=== PATIENT | male | born 1950 | race Hispanic/Latino ===

== ENCOUNTER → 2023-10-14 10:25 | Outpatient (REF) | payer OTHER, SELFPAY ==
[2023-10-14 12:36] LABS: Iron 79 ug/dl (49-181)
[2023-10-14 12:48] LABS: Percent Saturation 19 % (20-50); Total Iron Binding Capacity 405 ug/dl (261-462)
[2023-10-14 13:31] LABS: % Basophils 1.2 % (0-2); % Eosinophils 5.2 % (0-6); % Immature Granulocytes 0.7 % (0-0.5); % Lymphocytes 48.9 % (20.5-51.1); % Monocytes 9.4 % (1.7-9.3); % Neutrophils 34.6 % (42.2-75.2); Absolute Basophils 0.1 10^3/uL (0-0.2); Absolute Eosinophils 0.2 10^3/uL (0-0.7); Absolute Lymphocytes 2.1 10^3/uL (1.2-3.4); Absolute Monocytes 0.4 10^3/uL (0.1-0.6); Absolute Neutrophils 1.5 10^3/uL (1.4-6.5); Hematocrit 41.7 % (39.0-52.0); Hemoglobin 13.7 g/dL (13.0-18.0); Mean Corp Hgb Conc. 32.9 g/dL (33.0-37.0); Mean Corpuscular Hgb 27.7 pg (27.0-31.0); Mean Corpuscular Volume 84.4 fL (80.0-94.0); Mean Platelet Volume 10.3 fL (7.4-10.4); Nucleated Red Blood Cells % 0 % (-); Platelet Count 267 10^3/uL (130-400); Red Blood Cell Count 4.94 10^6/uL (4.70-6.10); Red Cell Dist. Width 14.1 % (11.5-14.5); White Blood Cell Count 4.3 10^3/uL (4.8-10.8)
== END ==
LOC: CLINIC 10:25
PROVIDERS: ATTENDING PHYSICIAN Internal Medicine
DX: D50.9 Iron deficiency anemia, unspecified (principal)
CPT/HCPCS: 36415; 83540; 83550; 85025

== ENCOUNTER 2024-12-30 19:38 | Inpatient (IN) | payer OTHER, SELFPAY ==
[2024-12-30 16:36] VITALS: BP 132/83
--- NOTE | 2024-12-30 16:54 | ED.GENMED ---
History of Present Illness
General
Chief Complaint: Male Genito-Urinary Symptoms
Time Seen by Provider: 12/30/24 16:41
History of Present Illness
History of Present Illness:
Patient presents to the emergency department with dysuria for the past 3 to 4 days. Last night he developed fever and low back pain bilaterally. No vomiting. history of UTIs.
Past History
Past History
ED Past Medical History: None
ED Past Surgical History: None
Social History
Tobacco: Non-smoker
Living: with family
Phy Exam
Physical Exam
Physical Exam:
GENERAL APPEARANCE: NAD, well developed/ well nourished
EYES lids/conjunctiva normal
EARS/NOSE/THROAT Mucous membranes moist, uvula midline without oral pharyngeal erythema, exudate or swelling
HEAD/NECK normocephalic atraumatic, neck is supple.
RESPIRATORY respiratory effort normal, speaks in full sentences, no accessory muscle use. Lungs clear to auscultation without rhonchi, wheezes, rales
CARDIAC Regular rate and rhythm, no edema.
ABDOMINAL Soft, no distention. Mild bladder tenderness to palpation. Mild lumbar tenderness to palpation bilaterally.
Normal external genitalia.
MUSCLES/EXTREMITIES No abnormal range of motion, no swelling.
SKIN Warm, pink and dry. No rashes
NEUROLOGICAL Speech is clear and appropriate. Normal level of consciousness. 5/5 strength in all extremities.
PSYCH Normal mood and affect. Judgement/competence is appropriate
Course
Orders/Labs/Results
Orders:
Orders
12/30/24 16:53
0.9% Sodium Chloride 1000 ml [Nss] 1,000 ml IV BOLUS
12/30/24 17:56
Complete Blood Count/With Diff Urgent
Comprehensive Metabolic Panel Urgent
Lactic Acid Q4H
Comment: CANCEL 2nd LACTIC ACID IF 1st LACTIC ACID IS LESS THAN 2
Urinalysis Reflex To Culture Urgent
Date Specimen was Collected: 12/30/24
Time Specimen was Collected: 17:17
Urine Microscopic Reflex Cult Urgent
Urine Culture Urgent
MOON Source: U
Specimen Description:
Date Specimen was Collected: 12/30/24
Time Specimen was Collected: 17:17
12/30/24 18:04
Acetaminophen [Tylenol] 1,000 mg .ROUTE .STK-MED ONE
12/30/24 18:05
Acetaminophen [Tylenol] 1,000 mg PO NOW STA
12/30/24 18:52
CefTRIAXone [Rocephin] 1,000 mg IV NOW STA
12/30/24 19:00
Blood Culture Q30M
MOON Source: Blood/Venous
Specimen Description:
12/30/24 19:30
Blood Culture Q30M
MOON Source: Blood/Venous
Specimen Description:
Abnormal Lab Results
12/30/24
17:56
WBC 13.2 H 10^3/uL
(4.8-10.8)
Abs Immat Gran (auto) 0.1 H 10^3/uL
(0-0.05)
Absolute Neuts (auto) 10.6 H 10^3/uL
(1.4-6.5)
Absolute Monos (auto) 1.0 H 10^3/uL
(0.1-0.6)
Neutrophils % 80.6 H %
(42.2-75.2)
Lymphocytes % 11.1 L %
(20.5-51.1)
Glucose 103 H mg/dl
(70-99)
Ur Occult Blood Reflex 4+ A
(Negative)
Leukocyte Esterase Rfl 3+ A
(Negative)
Urine WBC (Reflex) 50-60 A /HPF
(0-5)
Urine Bacteria (Reflex) Few A
(Negative)
Urine Albumin (Reflex) 2+ A
(Neg - Trace)
12/30/24 17:56
12/30/24 17:56
Vital Signs
Initial and Last Documented VS:
Initial Vital Signs
Temp Pulse Resp BP Pulse Ox
98.2 F 90 16 132/83 96
12/30/24 16:36 12/30/24 16:36 12/30/24 16:36 12/30/24 16:36 12/30/24 16:36
Last Documented Vital Signs
Temp Pulse Resp BP Pulse Ox
101.3 F H 92 22 125/72 96
12/30/24 18:18 12/30/24 18:18 12/30/24 18:18 12/30/24 18:18 12/30/24 18:18
*Critical Care Note
Total Time (30-74mins, 75-104mins- exclusive of procedures): Not Applicable
ED Attending Note
ED Attending Note
ED Attending Note:
Patient presents with fever dysuria and low back pain. Urine positive for infection. He is febrile with a leukocytosis. This consistent with sepsis. No evidence of hypotension or shock or endorgan damage. Cultures drawn. Will treat with
ceftriaxone and admit to hospitalist.
-
Portions of this chart may have been created with voice recognition software.� Occasional wrong word or��sound alike� substitutions may have occurred due to the inherent limitations of voice recognition software.
Discharge Plan
Departure
Patient Disposition: Admit
Date of Disposition: 12/30/24
Time of Disposition: 18:55
Presentation/result/management discussed w/ accepting MD/DO: Hospitalist
Discharge Problem:
Acute pyelonephritis
Prescriptions:
No Action
amoxicillin-pot clavulanate 1 TABLET tablet
1 tab PO Q12 Qty: 20 0RF
Referrals:
UNKNOWN - PT NOT,INTERVIEWE [Family Provider]
Interventions
Interventions:
*Risk Screen - Suicide Last Done: 12/30/24 18:18
*General Assessment Last Done: 12/30/24 18:18
*Neglect/Abuse Screening Last Done: 12/30/24 18:18
*ED- Fall Risk Assessment Last Done: 12/30/24 18:18
*ED COVID-19 Vaccine History Last Done: 12/30/24 18:18
ED-Male Genitourinary Assessment Last Done: 12/30/24 18:18
ED- Pulmonary Assessment Last Done: 12/30/24 18:18
Discharge Date and Time
Print Language: BRAZILIAN
[2024-12-30 17:25] VITALS: BMI 26.6
[2024-12-30 18:06] LABS: Urine Albumin 2+ (Neg - Trace); Urine Bilirubin Negative (Negative); Urine Character Slightly Cloudy (Clear); Urine Color Yellow; Urine Glucose Negative (Negative); Urine Ketone Negative (Negative); Urine Leukocyte 3+ (Negative); Urine Nitrite Negative (Negative); Urine Occult Blood 4+ (Negative); Urine Urobilinogen Negative (Neg - 1+)
[2024-12-30] MEDS: TYLENOL 1000 MG PO (18:06)
[2024-12-30] MEDS: NSS 1000 IV ×2 (18:06→21:30)
[2024-12-30 18:07] LABS: % Basophils 0.3 % (0-2); % Eosinophils 0.2 % (0-6); % Immature Granulocytes 0.5 % (0-0.5); % Lymphocytes 11.1 % (20.5-51.1); % Monocytes 7.3 % (1.7-9.3); % Neutrophils 80.6 % (42.2-75.2); Absolute Immature Granulocytes 0.1 10^3/uL (0-0.05); Absolute Lymphocytes 1.5 10^3/uL (1.2-3.4); Absolute Neutrophils 10.6 10^3/uL (1.4-6.5); Hematocrit 41.2 % (39.0-52.0); Hemoglobin 14.1 g/dL (13.0-18.0); Mean Corp Hgb Conc. 34.2 g/dL (33.0-37.0); Mean Corpuscular Hgb 29.4 pg (27.0-31.0); Mean Platelet Volume 9.2 fL (7.4-10.4); Nucleated Red Blood Cells % 0 % (-); Platelet Count 262 10^3/uL (130-400); Red Blood Cell Count 4.79 10^6/uL (4.70-6.10); Red Cell Dist. Width 13.9 % (11.5-14.5); White Blood Cell Count 13.2 10^3/uL (4.8-10.8)
[2024-12-30 18:18] VITALS: BP 125/72
[2024-12-30 18:18] LABS: Lactic Acid 1.2 mmol/L (0.7-2.0)
[2024-12-30 18:21] LABS: ALT (SGPT) 28 U/L (0-50); AST (SGOT) 19 U/L (17-59); Albumin 4.2 g/dl (3.5-5.0); Alkaline Phosphatase 116 U/L (38-126); Blood Urea Nitrogen 11 mg/dl (9-20); Calcium 8.9 mg/dl (8.4-10.2); Carbon Dioxide 24 mmol/L (22-30); Chloride 104 mmol/L (98-107); Estimated Creatinine Clearance 82 ml/min; Glucose 103 mg/dl (70-99); Potassium 4.2 mmol/L (3.5-5.1); Sodium 136 mmol/L (135-145); Total Bilirubin 0.9 mg/dl (0.2-1.3); Total Protein 7.6 g/dl (6.3-8.2); eGFR > 60.00
[2024-12-30 18:37] LABS: Urine Bacteria Few (Negative); Urine Red Blood Cell 0-2 /HPF (0-2); Urine Squamous Cell 0-2 /LPF (Few); Urine White Cell 50-60 /HPF (0-5)
[2024-12-30] MEDS: ROCEPHIN 1000 MG IV (18:58)
--- NOTE | 2024-12-30 19:12 | HPS.HSE ---
Family Physician
-
Family Physician: INTERVIEWE UNKNOWN - PT NOT
Chief Complaint
-
dysuria
History of Present Illness
74-year-old Ecuadorean-speaking male past medical history of UTIs, iron deficiency anemia, diabetes diet-controlled, presenting with burning with urination for the past 3 to 4 days. Last night he developed fever and lower back pain bilaterally worse
on the right side. Denies vomiting. Denies history of kidney stones. Denies any blood in the urine.
Denies smoking or alcohol use.
Medical History
Past Medical History
Past Medical History: Reports Other ( UTIs, iron deficiency anemia, diabetes diet-controlled)
Past Surgical History: Reports None
Social History
Tobacco: Non-smoker
Alcohol: None
Drug: None
Family History
Family History: Not pertinent
Allergies / Home Medications
Allergies reflects when Allergies were last updated in [facility].
Home Medications with original date entered in [facility]
Allergy/Medication List:
Allergies
Allergy/AdvReac Type Severity Reaction Status Date / Time
No Known Allergies Allergy Unverified 12/30/24 16:37
Home Medications
amoxicillin 875 mg-potassium clavulanate 125 mg tablet 1 tab PO Q12 #20 tabs 12/25/21
Review of Systems
-
History Source: Patient
A 12 point ROS was completed and negative except as noted: Yes
Constitutional: Reports No Symptoms
EENT: Reports No Symptoms
Respiratory: Reports No Symptoms
Cardiac: Reports No Symptoms
Abdomen/GI: Reports No Symptoms
: Reports See HPI
Musculoskeletal: Reports No Symptoms
Skin: Reports No Symptoms
Neurological: Reports No Symptoms
Endocrine: Reports No Symptoms
Hematologic/Lymphatic: Reports No Symptoms
Psych: Reports No Symptoms
Physical Exam
Vital Signs
Vital Signs
Temp Pulse Resp BP Pulse Ox
101.3 F H 92 22 125/72 96
12/30/24 18:18 12/30/24 18:18 12/30/24 18:18 12/30/24 18:18 12/30/24 18:18
Physical Exam
General: Well Developed, Well Nourished and No Apparent Distress
HEENT: NormoCephalic, Moist mucous membranes and Atraumatic
Respiratory: Clear
Cardiac: S1/S2 and Regular Rhythm; No Murmur or Rub
GI: Soft, Non Tender, Non Distended and Normal Bowel Sounds; No Organomegaly
Rectal: Deferred by Provider
Genito-urinary: Costovertebral angle tend (right )
Musculoskeletal: No Clubbing, No Cyanosis and No Edema
Skin: No Rash
Neuro: Nonfocal/grossly intact
Laboratory Results
-
12/30/24 17:56
12/30/24 17:56
Laboratory Results
Lactic Acid Cancelled 12/30/24 21:00
Total Bilirubin 0.9 mg/dl (0.2-1.3) 12/30/24 17:56
AST 19 U/L (17-59) 12/30/24 17:56
ALT 28 U/L (0-50) 12/30/24 17:56
Alkaline Phosphatase 116 U/L (38-126) 12/30/24 17:56
Data Reviewed
-
Lab Data: Labs Reviewed by me
Old Records: Reviewed
Impression/Plan
-
IMPRESSION:
PLAN:
# Sepsis (fever, leukocytosis, tachycardia) secondary to presumed pyelonephritis of right side
- Urinalysis shows 50-60 WBC, +3 leukocyte esterase, slightly cloudy urine
- Urine culture, blood cultures
-Tylenol
-IV fluids
- Ceftriaxone
- Consider CT abdomen pelvis if not improving on antibiotic
History of UTIs
Iron deficiency anemia
Diet controlled diabetes
Full code
DVT prophylaxis�heparin
Regular diet
[2024-12-30 20:02] VITALS: BP 114/72; BMI 26.7
[2024-12-30] MEDS: HEPARIN 5000 UNITS SC (21:30)
[2024-12-30 23:16] VITALS: BP 111/67
[2024-12-31] MEDS: NSS 1000 IV ×2 (06:40→15:36)
--- NOTE | 2024-12-31 07:37 | W.PN.HOSP.TC ---
Today's Communication/Plan
-
Pending urine culture.
Running low-grade fever.
Possible discharge in am
Assessment / Plan
Assessment / Plan
Impression:
74-year-old Romanian-speaking male past medical history of UTIs, iron deficiency anemia, diabetes diet-controlled, presenting with burning with urination for the past 3 to 4 days. Last night he developed fever and lower back pain bilaterally worse
on the right side. Denies vomiting. Denies history of kidney stones. Denies any blood in the urine.
Still running low-grade fever, pending urine culture.
Assessment/plan:
Sepsis (fever, leukocytosis, tachycardia) secondary to presumed pyelonephritis of right side
- Urinalysis shows 50-60 WBC, +3 leukocyte esterase, slightly cloudy urine
- Urine culture, blood cultures
-Tylenol
-IV fluids
- Ceftriaxone
- Consider CT abdomen pelvis if not improving on antibiotic
12/31
Fever improved, leukocytosis improved.
Patient denies any pain at this time.
Patient wants to go home but still pending urine culture.
Possible discharge tomorrow.
Iron deficiency anemia
Hemoglobin stable
Diet controlled diabetes
Blood sugar except
CODE STATUS: Full code
DVT prophylaxis: Heparin
Diet: Regular diet
Family communication: Discussed with daughter at bedside.
Disposition: Pending urine culture.
Running low-grade fever.
Possible discharge in am
Total time spent on today's encounter was 65 minutes which included time spent in counseling the patient/family regarding diagnosis and treatment plan as listed above, goals of care, and symptom management. Case was discussed with nursing staff,
specialists, and care coordinators/case management. All labs and imaging personally reviewed by me. Remainder the time spent in detailed review of previous records, lab data, imaging, and other medical provider documentation.
Anticipated Discharge: Within 24 hours
Subjective/Interval History
-
Date of Service: December 31, 2024
Patient seen and examined at bedside, denies any chest pain or shortness of breath, no abdominal pain, no nausea, no vomiting, no diarrhea or constipation.
Translation provided by daughter at bedside.
Objective Data
-
Labs:
Laboratory Results
12/31/24
06:39
WBC Pending
Hgb Pending
Hct Pending
Plt Count Pending
Sodium Pending
Potassium Pending
Chloride Pending
Carbon Dioxide Pending
BUN Pending
Creatinine Pending
Glucose Pending
Calcium Pending
Total Bilirubin Pending
AST Pending
ALT Pending
Alkaline Phosphatase Pending
Vital Signs:
Vital Signs
Temp Pulse Resp BP Pulse Ox
100.0 F 86 16 111/67 93
12/31/24 05:51 12/30/24 23:16 12/30/24 23:16 12/30/24 23:16 12/30/24 23:16
I&O
12/30/24 12/31/24 01/01/25
06:59 06:59 06:59
Intake Total 1340 / 1340
Balance 1340 / 1340
Physical Exam
-
General: Well Developed, Well Nourished, No Apparent Distress and Comfortable
HEENT: Normocephalic, Atraumatic, Moist Mucous Membranes, No Ptosis, PERRLA and Nose Appears Normal
Respiratory: Clear to Auscultation and Non Labored Respirations
Cardiac: Regular Rhythm and S1/S2
Breast: Deferred by me
GI: Soft, Nontender, Nondistended and Normal Bowel Sounds
Genito-urinary: No Costovertebral Tender
Musculoskeletal: No Clubbing, No Cyanosis and No Edema
Skin: Warm
Neuro: Awake, Alert, Oriented, AO x 3 and No Motor Deficits
Psych: Calm
Data Reviewed
-
Diagnostic Radiology: Image personally visualized and interpreted and Report Reviewed by me
CT Scan: Image personally visualized and interpreted and Report Reviewed by me
Ultrasound: Image personally visualized and interpreted and Report Reviewed by me
MRI: Image personally visualized and interpreted and Report Reviewed by me
Medical Tests (Nuc Med, Echo etc): Image personally visualized and interpreted and Report Reviewed by me
Labs: Labs Reviewed by me
Old Records: Reviewed
[2024-12-31 07:40] VITALS: BP 115/70
[2024-12-31 07:57] LABS: % Basophils 0.4 % (0-2); % Eosinophils 0.3 % (0-6); % Immature Granulocytes 0.3 % (0-0.5); % Lymphocytes 14.1 % (20.5-51.1); % Monocytes 9.1 % (1.7-9.3); % Neutrophils 75.8 % (42.2-75.2); Absolute Basophils 0.1 10^3/uL (0-0.2); Absolute Lymphocytes 1.6 10^3/uL (1.2-3.4); Absolute Monocytes 1.1 10^3/uL (0.1-0.6); Absolute Neutrophils 8.8 10^3/uL (1.4-6.5); Hematocrit 36.7 % (39.0-52.0); Hemoglobin 12.5 g/dL (13.0-18.0); Mean Corp Hgb Conc. 34.1 g/dL (33.0-37.0); Mean Corpuscular Hgb 29.7 pg (27.0-31.0); Mean Corpuscular Volume 87.2 fL (80.0-94.0); Mean Platelet Volume 9.6 fL (7.4-10.4); Nucleated Red Blood Cells % 0 % (-); Platelet Count 242 10^3/uL (130-400); Red Blood Cell Count 4.21 10^6/uL (4.70-6.10); Red Cell Dist. Width 13.9 % (11.5-14.5); White Blood Cell Count 11.6 10^3/uL (4.8-10.8)
[2024-12-31 08:29] LABS: ALT (SGPT) 21 U/L (0-50); AST (SGOT) 15 U/L (17-59); Albumin 3.5 g/dl (3.5-5.0); Alkaline Phosphatase 96 U/L (38-126); Blood Urea Nitrogen 7 mg/dl (9-20); Calcium 8.4 mg/dl (8.4-10.2); Carbon Dioxide 22 mmol/L (22-30); Chloride 110 mmol/L (98-107); Estimated Creatinine Clearance 79 ml/min; Glucose 115 mg/dl (70-99); Sodium 137 mmol/L (135-145); Total Bilirubin 0.9 mg/dl (0.2-1.3); Total Protein 6.5 g/dl (6.3-8.2); eGFR > 60.00
[2024-12-31] MEDS: HEPARIN 5000 UNITS SC ×2 (09:17→19:48)
[2024-12-31] MEDS: STERILE WATER FOR INJECTION 10 ML IV (11:25)
[2024-12-31] MEDS: ROCEPHIN 1000 MG IV (11:25)
[2024-12-31 15:20] VITALS: BP 129/68
[2024-12-31] MEDS: TYLENOL 650 MG PO (15:36)
[2024-12-31 23:11] VITALS: BP 111/60
[2025-01-01] MEDS: NSS 1000 IV (01:00)
[2025-01-01 07:24] VITALS: BP 111/66
[2025-01-01 07:56] LABS: Hematocrit 38.3 % (39.0-52.0); Hemoglobin 12.9 g/dL (13.0-18.0); Mean Corp Hgb Conc. 33.7 g/dL (33.0-37.0); Mean Corpuscular Hgb 29.7 pg (27.0-31.0); Mean Corpuscular Volume 88.2 fL (80.0-94.0); Mean Platelet Volume 9.6 fL (7.4-10.4); Platelet Count 231 10^3/uL (130-400); Red Blood Cell Count 4.34 10^6/uL (4.70-6.10); Red Cell Dist. Width 14.2 % (11.5-14.5)
[2025-01-01 08:45] LABS: Blood Urea Nitrogen 7 mg/dl (9-20); Calcium 8.3 mg/dl (8.4-10.2); Carbon Dioxide 22 mmol/L (22-30); Chloride 110 mmol/L (98-107); Estimated Creatinine Clearance 92 ml/min; Glucose 105 mg/dl (70-99); Potassium 4.1 mmol/L (3.5-5.1); Sodium 140 mmol/L (135-145); eGFR > 60.00
[2025-01-01] MEDS: HEPARIN 5000 UNITS SC (08:58)
--- NOTE | 2025-01-01 09:22 | W.PN.HOSP.TC ---
Today's Communication/Plan
-
Probable discharge in the afternoon if no recurrence of fever
Assessment / Plan
Assessment / Plan
HPI: 74-year-old Yakut-speaking male past medical history of UTIs, iron deficiency anemia, diabetes diet-controlled, presenting with burning with urination for the past 3 to 4 days. Last night he developed fever and lower back pain bilaterally
worse on the right side. Denies vomiting. Denies history of kidney stones. Denies any blood in the urine.
Still running low-grade fever, pending urine culture.
Assessment/plan:
Sepsis (fever, leukocytosis, tachycardia) secondary to presumed pyelonephritis of right side
- Urinalysis shows 50-60 WBC, +3 leukocyte esterase, slightly cloudy urine
- Leukocytosis resolved, last fever was on 12/31/2024, temperature 102.1 at 3:20 p.m.
- Blood cultures negative to date, urine culture growing 50,000 of E. coli
- Patient eager for discharge, likely can be discharged home in the afternoon on cefdinir to complete a 7-day course if he has no recurrence of fever
Iron deficiency anemia
- Hemoglobin stable
Diet controlled diabetes
- Blood sugar acceptable
CODE STATUS: Full code
DVT prophylaxis: Heparin
Diet: Regular diet
Updated family at bedside 01/01
Physical Exam
General: No acute distress
HEENT: Normocephalic, Atraumatic, EOMI, MMM
Respiratory: Clear to Auscultation bilaterally
Cardiac: Normal S1/S2, Regular Rate and Rhythm
GI: Soft, Nontender, Nondistended, Normal Bowel Sounds
Extremities: No Clubbing, Cyanosis, or Edema
Neuro: Nonfocal/Grossly Intact
Psych: Calm, Cooperative
Derm: No Visible lesions
Anticipated Discharge: Today
Subjective/Interval History
-
Date of Service: January 01, 2025
Reports feeling better. Flank pain resolved. Dysuria resolved. Denies abdominal pain. No fever, no shortness of breath, no chest pain. No vomiting. He is eager for discharge today.
Objective Data
-
Labs:
Laboratory Results
01/01/25
07:09
WBC 7.0
Hgb 12.9 L
Hct 38.3 L
Plt Count 231
Sodium 140
Potassium 4.1
Chloride 110 H
Carbon Dioxide 22
BUN 7 L
Creatinine 0.6 L
Glucose 105 H
Calcium 8.3 L
Vital Signs:
Vital Signs
Temp Pulse Resp BP Pulse Ox
98.6 F 76 16 111/66 96
01/01/25 07:24 01/01/25 07:24 01/01/25 07:24 01/01/25 07:24 01/01/25 07:24
I&O
12/31/24 01/01/25 01/02/25
06:59 06:59 06:59
Intake Total 1340 / 1340 1919
Balance 1340 / 1340 1919
[2025-01-01] MEDS: ROCEPHIN 1000 MG IV (11:33)
[2025-01-01] MEDS: STERILE WATER FOR INJECTION 10 ML IV (11:34)
[2025-01-01] MEDS: NSS IV (11:53)
[2025-01-01 15:10] VITALS: BP 126/70
--- NOTE | 2025-01-01 15:33 | W.DCSUMMARY ---
Discharge Summary
Discharge Data
Date of Admission: 12/30/24
Date of Discharge: 01/01/25
-
Pending Results: Yes
Additional Pending Results:
Sensitivities of E. Coli in urine culture
Hospital Course
Discharge diagnosis:
Sepsis
Acute urinary tract infection with presumed right-sided pyelonephritis
Iron deficiency anemia
Diet-controlled diabetes
Hospital course:
74-year-old male with a past medical history of UTIs, diabetes, and iron deficiency anemia was admitted for sepsis secondary to an acute urinary tract infection and presumed right-sided pyelonephritis. Patient has been having fever at home, and
complains of dysuria with right-sided flank pain. He was treated with IV Rocephin. His leukocytosis and fever resolved. Patient's dysuria and flank pain have also resolved. His urine culture grew out 50,000 colonies of E. coli, sensitivities
are pending. Patient requested discharge. Due to resolution of his leukocytosis and fever, it is reasonable to discharge him on empiric cefdinir to complete a 7-day course. Patient has been counseled to follow-up with his PCP in 1 week.
Disposition: Home self-care
Discharge planning: Required 36 minutes
Discharge Plan
-
Patient Disposition: Home (Routine Discharge)
Discharge Diagnosis/Procedures: Acute urinary tract infection with probable pyelonephritis
Condition: Good
Diet: Regular
Activity: As tolerated
Driving Restrictions: As prior to admission
Activity Restrictions/Additional Instructions:
Please follow-up with your primary care provider in 1 week.
Referrals:
UNKNOWN - PT NOT,INTERVIEWE [Family Provider]
Prescriptions:
New
cefdinir 300 mg capsule
300 mg PO BID 5 Days Qty: 10 0RF
Continued
therapeutic multivitamin Tablet
1 tab PO DAILY
Discharge Orders:
Discharge Patient (As Directed); Ordered 01/01/25
Ordered By: Manish Maldonado
Discharge Date and Time
Discharge Date/Time: 01/01/25 17:14
Print Language: BRUNEIAN
--- NOTE | 2025-01-01 16:16 | CM ---
Addendum entered by Doretha Pineda 01/01/25 16:21:
IMM explained to daughter, verbalize understanding. Placed in chart
Original Note:
Patient seen at bedside
IA completed-obtained by daughter Yanelis
Lives at home with in a 1 story home
PLOF: independent
Denies DME
Denies VN/Rehab
PCP: Dr. Braeden Landa, [facility]
Pharmacy: [address], [place] (entered in [facility])
PLAN: home, no needs
daughter to transport
== END 2025-01-01 17:14 | disposition home or self-care (01) | DRG 872 ==
LOC: 4 EAST ACU 19:38
PROVIDERS: General Practice; ADMITTING PHYSICIAN Hospitalist; ATTENDING PHYSICIAN Family Medicine; EMERGENCY PHYSICIAN Emergency Medicine
DX: A41.9 Sepsis, unspecified organism (principal); N10 Acute pyelonephritis; Z87.440 Personal history of urinary (tract) infections; D50.9 Iron deficiency anemia, unspecified; E11.9 Type 2 diabetes mellitus without complications
CPT/HCPCS: 80048; 80053; 81003; 81015; 83605; 85025; 85027; 87040; 87086; 87088; 96361; 96374; 99284

== ENCOUNTER → 2025-01-11 16:48 | Outpatient (REF) | payer OTHER, SELFPAY ==
[2025-01-12 09:22] LABS: Glycohemoglobin (HgbA1c) 6.5 % (4.0-5.6)
== END ==
LOC: CLINIC 16:48
PROVIDERS: ATTENDING PHYSICIAN Internal Medicine
DX: N10 Acute pyelonephritis (principal); E11.9 Type 2 diabetes mellitus without complications
CPT/HCPCS: 36415; 83036; 87077; 87086; 87186